=== PATIENT | male | born 1990 | race Two or more races ===

== ENCOUNTER 2024-12-08 15:57 | Emergency (ER) | payer OTHER ==
[~2024-12-08] VITALS: Ht 182.9 cm; Wt 104.3 kg
[2024-12-08] MEDS ORDERED: IPRATROPIUM/ALBUTEROL SULFATE 3 ML AMPUL.NEB IH SCH (19:30)
[2024-12-08] MEDS ORDERED: ACETAMINOPHEN 500 MG GEL..CAP PO ONE (19:50)
[2024-12-08] MEDS ORDERED: IPRATROPIUM/ALBUTEROL SULFATE 3 ML AMPUL.NEB IH ONE (20:00)
[2024-12-08 20:43] LABS: HEMATOCRIT 44.8 % (39.0-48.0); HEMOGLOBIN 15.5 g/dL (13-16.00); MEAN CELL VOLUME 86.7 fL (80.0-100.00); MEAN CORPUSCULAR HEMOGLOBIN 30.1 pg (27.00-32.0); MEAN CORPUSCULAR HGB CONC 34.7 g/dl (32.0-36.0); PLATELET COUNT 252 K/uL (150-450); RED BLOOD COUNT 5.16 M/uL (4.00-6.00); RED CELL DISTRIBUTION WIDTH 13.1 % (11.5-14.5)
[2024-12-08] MEDS ORDERED: ACETAMINOPHEN500 M1 PO (23:03)
[2024-12-08] MEDS ORDERED: OSEL75CA PO (23:03)
[2024-12-08] MEDS ORDERED: GILTUSS COUGH-118 M1 PO (23:03)
== END 2024-12-09 00:21 | disposition home or self-care (01) ==
LOC: ER 15:59
PROVIDERS: Preventive Medicine Public Health & General Preventive Medicine
DX: J10.1 Influenza due to other identified influenza virus with other respiratory manifestations (principal); Z20.822 Contact with and (suspected) exposure to COVID-19; Z87.09 Personal history of other diseases of the respiratory system